=== PATIENT | female | born 1975 ===

== ENCOUNTER 2022-09-08 05:40 | Day surgery (SDC) | payer OTHER | END 2022-09-08 13:40 | disposition home or self-care (01) | LOC: CIR.AMB 05:40 | PROVIDERS: ATTEND Student in an Organized Health Care Education/Training Program | DX: N95.0 Postmenopausal bleeding (principal); N72 Inflammatory disease of cervix uteri; N84.0 Polyp of corpus uteri; Z20.822 Contact with and (suspected) exposure to COVID-19 ==